=== PATIENT | female | born 1940 | race Caucasian/White ===

== ENCOUNTER 2023-03-12 17:36 | Emergency (ER) | payer MEDICARE, SELFPAY ==
[2023-03-12 17:40] VITALS: BP 139/64; PULSE 68; RESP 18; TEMP 36.7; O2SAT 95; BMI 24.5
--- NOTE | 2023-03-12 17:44 | DI.RAD.S_ITS ---
PROCEDURE: XR WRIST LT MIN 3V INDICATIONS: fall. L wrist pain TECHNIQUE: 3 views of the wrist were acquired. COMPARISON: [facility], , WRIST MINIMUM 3 VIEWS RIGHT, 11/23/2015, 14:33. FINDINGS: Bones: There is a comminuted, mildly displaced impacted fracture of the distal radius with articular surface extension to the radiocarpal joint. Joint space narrowing and periarticular osteophyte formation at the radial carpal, scaphoid trapezial, and 1st carpometacarpal joints. Scaphoid view: Not requested Soft tissues: No suspicious soft tissue calcifications. IMPRESSION: Distal radial fracture. Dictated by: Seth Goins M.D. on 03/12/2023 at 18:00 Approved by: Seth Goins M.D. on 03/12/2023 at 18:01
[2023-03-12] MEDS: OXYCODONE IR 5 MG TABLET PO (17:50)
--- NOTE | 2023-03-12 17:57 | ED.UPPEXIN ---
HPI - Extremity Injury (Upper) General Chief Complaint: Extremity Injury, Upper Stated Complaint: possible broken wrist Time Seen by Provider: 03/12/23 17:38 Source: patient Mode of arrival: Ambulatory History of Present Illness HPI narrative: 82-year-old female presents from home by private vehicle for left wrist pain that occurred prior to arrival. Patient was walking when she slipped, landing on her outstretched wrist. She did not hit her head, she did not lose consciousness, denies use of blood thinners. Patient is concerned that she may have broken her wrist. She took Tylenol prior to arrival. Related Data Previous Rx's Medication Instructions Recorded oxycodone-acetaminophen 5 mg-325 1 tab PO Q6H PRN pain #14 tabs 03/12/23 mg tablet (Percocet) Allergies Allergy/AdvReac Type Severity Reaction Status Date / Time codeine [CODEINE] Allergy Unknown Verified 03/12/23 17:43 Sulfa (Sulfonamide AdvReac Unknown Verified 03/12/23 17:43 Antibiotics) [SULFA (SULFONAMIDE ANTIBIOTICS)] Review of Systems Review of Systems Narrative: CONSTITUTIONAL- Denies: fever, chills, fatigue HEENT- Denies: sore throat, nosebleed, vision changes RESPIRATORY- Denies: shortness of breath, cough, wheezing CARDIAC- Denies: chest pain, edema, orthopnea GI- Denies: abdominal pain, nausea, vomiting, constipation, diarrhea - Denies: frequency, dysuria, hematuria, flank pain MSK-reports: Right wrist pain, right wrist swelling Denies: extremity pain, extremity swelling SKIN- Denies: rash, itching, burn, swelling NEUROLOGICAL- Denies: headache, numbness, weakness, dizziness PSYCHIATRIC- Denies: anxiety, depression, suicidal ideation, homicidal ideation Patient History Social History Smoking Status: Never smoker Smoking Status: Never smoker alcohol intake frequency: a few times a week Substance Use Type: does not use Exam Initial Vital Signs Initial Vital Signs: Vital Signs Temperature 98.1 F 03/12/23 17:40 Pulse Rate 68 03/12/23 17:40 Respiratory Rate 18 03/12/23 17:40 Blood Pressure 139/64 03/12/23 17:40 Pulse Oximetry 95 03/12/23 17:40 Oxygen Delivery Method Room Air 03/12/23 17:40 Const: Awake, alert, no acute distress, nontoxic appearing Eyes: PERRL, EOMI, conjunctiva normal ENT: Atraumatic, dentition normal, mucous membranes moist Cardiac: regular rate, regular rhythm RESP: unlabored, clear bilaterally, no wheezing GI: Atraumatic, soft, nontender, nondistended, no rebound, no guarding MSK: Swelling, minimal deformity left wrist, 2+ radial pulses, movement intact, sensation intact and equal bilaterally Skin: Warm, Dry, intact, no rashes Neuro: AO x3, CN II-XII grossly intact, moves all extremities Psych: affect normal, mood normal, not suicidal, not homicidal Course Orders Ordered: Discontinued Medications Oxycodone HCl (Oxycodone Ir 5 Mg Tablet) 5 mg PO NOW ONE Stop: 03/12/23 17:45 Last Admin: 03/12/23 17:50 Dose: 5 mg Documented By: ALEXIA Vital Signs Vital signs: Vital Signs - 8 hr 03/12/23 17:40 Temperature 98.1 F Pulse Rate 68 Respiratory Rate 18 Blood Pressure 139/64 Pulse Oximetry 95 Oxygen Delivery Method Room Air MDM - Extremity Injury (Upper) MDM Narrative Medical decision making narrative: Well-appearing patient with wrist pain after a trip and fall. She does have minimal left wrist deformity, no other injuries. Neurovascularly intact. X-rays confirmed mildly displaced impacted fracture, no need for manipulation or relocation. Patient informed of diagnosis, placed in sugar-tong splint. Pain medication sent to pharmacy of choice. Patient states that she already has established care at an orthopedic office in [facility] and will call them 1st thing tomorrow morning for a follow up appointment. Discharged home with her grandkids in stable condition. Discharge Plan Departure Patient Disposition: Home Clinical Impression: Fracture of wrist Instructions: DI for Distal Radius Fracture Prescriptions: New oxycodone-acetaminophen [Percocet] 5-325 mg tablet 1 tab PO Q6H PRN (Reason: pain) Qty: 14 0RF Referrals: Oliver Guevara MD [Primary Care Provider] - Ingrid Paul MD [Physician] - Stand Alone Forms: Patient Portal/API
[2023-03-12 18:42] VITALS: BP 141/73; PULSE 68; RESP 18; O2SAT 98
== END 2023-03-12 18:45 | disposition home or self-care (01) ==
PROVIDERS: Emergency Provider Emergency Medicine; Family Provider Internal Medicine; PCP Internal Medicine
DX: S52.502A Unspecified fracture of the lower end of left radius, initial encounter for closed fracture (principal); W01.0XXA Fall on same level from slipping, tripping and stumbling without subsequent striking against object, initial encounter
CPT/HCPCS: 73110; 99283